=== PATIENT | female | born 1990 | race Two or more races ===

== ENCOUNTER 2024-06-15 14:36 | Outpatient (AMB) | payer MEDICAID, SELFPAY ==
[2024-06-15 15:06] VITALS: BP 118/73; PULSE 83; RESP 19; TEMP 36.6; O2SAT 97; BMI 32.6
--- NOTE | 2024-06-15 15:06 | ORTHONT_ITS ---
Vital signs 06/15/24 15:06 Height 1.73 m Height Method Stated Weight 97.522 kg Weight Measurement Method Standing Scale BMI 32.6 BP 118/73 Blood Pressure Source Automatic Cuff Blood Pressure Location Right Upper Arm Position Sitting Respiration 19 Pulse 83 Pulse Source Monitor Temp 97.9 F Temp Source Temporal Artery Scan Pulse Oximetry (%) 97 Oxygen Delivery Method Room Air Med/Allergies Allergies & Medications Allergies sumatriptan [From Imitrex] Allergy (Verified 06/15/24 15:13) vancomycin Allergy (Verified 06/15/24 15:13) AUGMENTIN Allergy (Uncoded 06/15/24 15:13) LOCADINE PATCH Allergy (Uncoded 06/15/24 15:13) Medication Reconciliation acetaminophen 325 mg tablet (Tylenol) 325 mg PO QID PRN 06/15/24 [History Confirmed 06/15/24] albuterol sulfate 4 mg tablet, extended release 12 hr mg PO 06/15/24 [History Confirmed 06/15/24] cetirizine 10 mg tablet (Zyrtec) 10 mg PO QDAY PRN 06/15/24 [History Confirmed 06/15/24] diltiazem HCl 60 mg capsule,extended release 12 hr 60 mg PO BID 06/15/24 [History Confirmed 06/15/24] famotidine 20 mg tablet (Pepcid) 20 mg PO QDAY 06/15/24 [History Confirmed 06/15/24] fluticasone propionate 220 mcg/actuation HFA aerosol inhaler 1 puff inhalation BID 06/15/24 [History Confirmed 06/15/24] montelukast 10 mg tablet (Singulair) 10 mg PO QDAY 06/15/24 [History Confirmed 06/15/24] sertraline 100 mg tablet (Zoloft) 100 mg PO QDAY 06/15/24 [History Confirmed 06/15/24] Exam Exam Patient is in no acute distress and is cooperative with the examination today. Breathing is nonlabored. In no respiratory distress. Bilateral extremities were evaluated and demonstrates sensation intact to light touch. Palpable pedal pulses are present. No significant edema is present. Bilateral hips were examined. The patient has no pain with log roll of the hips. Internal rotation to 30 degrees and external rotation to 30 degrees is painless. Negative FADIR. The left knee was examined. The left knee is in varus alignment. Range of motion from 0-115 degrees. Knee is stable to varus and valgus as well as AP translation with <5mm. Patient has a negative McMurrays. There is no pain with patellofemoral compression and no crepitus noted. The knee is tender to palpation medially. The right knee was also examined. The right knee is in varus alignment. Range of motion from 0-120 degrees. Knee is stable to varus and valgus as well as AP translation with <5mm. Patient has a negative McMurrays. There is no pain with patellofemoral compression and no crepitus noted. The knee is tender to palpation medially. X-rays of the left knee demonstrates moderate to severe joint space narrowing medially. Osteophytes are present. Assessment and Plan Problem List (1) Degenerative arthritis of knee, bilateral: Status: Acute Plan: Patient is a 34-year-old female with posttraumatic arthritis of the left knee. We discussed nonoperative and operative options. At this point in time, we discussed that we recommend continued conservative treatment because of her age. We can do injections but we will need authorization. I also recommend weight loss in order to prolong and minimize her pain We will see her back after authorization for injections are obtained Office Procedures GNS Level of Care Nursing/Assessment Patient Status: Established Patient Nursing Assessment/Reassesment: Medication Reconciliation, Update PMH in EMR and Vital Signs Coordination of Care: Complex Care and Chronic Disease 1-5, Education Complex Pt/Fam, Consent,records obtained, informed consent, Results/Orders obtained and Staff clarify orders Established Patient Charge Established Patient Point Assignment: 95 Established Patient Point Charge: EP Level 3 (80-115) MA Intake Visit Data Collection New Patient or Established: New Patient (never been to [facility]) Reason for Visit:: BILATERAL KNEE PAIN Seen by Clinical Staff ONLY (RN/MA): No Verbal consent obtained for Telemed visit?: No 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 PCP or OBGYN visit in last 3 months: Yes Hx Now: No Do You Feel Safe at Home: Yes Authorities Contacted: N/A Questionairres Past Medical History Past Medical History Have you ever been diagnosed with any of the following: Subjective Visit Visit for: new patient and knee Immunization / Flu Flu Vaccine in the Last 12 Months: Yes Flu Vaccine Exclusion Criteria: No Exclusion Criteria History of Present Illness Chief complaint: BILATERAL KNEE PAIN Date of injury / onset of symptoms: YEARS Date of 1st surgery (if applicable): ACL REPAIR 06/15, 03/15,05/30 Beckie is a pleasant 34-year-old female with bilateral knee pain. The left side is worse than the right. She has had 3 prior surgeries including 2 ACL repairs as well as a arthroscopic meniscectomy. The pain is persistent and is bothering her. She has tried to lose weight but has had some difficulty. We recommend continued weight loss. She cannot take anti-inflammatories due to urticaria and fissures. Personal History Occupation: UNEMPLOYED Red flag PMH: none BMI Counceling provided: Yes Pain Pain level (0-10): 5 Pain duration: ALL DAY Pain location: inside (medial) Pain quality: dull and aching Pain timing: night, increases with activity and stairs Associated signs & symptoms: numbness, weakness and stiffness Ambulatory data Ambulatory device: cane and walker Treatments Improvement with previous injections: No Improvement with PT: No Improvement with NSAIDS: no Review of Systems Review of Systems: All systems negative unless otherwise noted in HPI.
== END 2024-06-15 15:34 | disposition home or self-care (01) ==
PROVIDERS: Supervising Provider Orthopaedic Surgery Adult Reconstructive Orthopaedic Surgery; Visit Provider Orthopaedic Surgery Adult Reconstructive Orthopaedic Surgery
DX: M17.0 Bilateral primary osteoarthritis of knee (principal)
CPT/HCPCS: 99213; G0463

== ENCOUNTER 2024-06-29 11:02 | Outpatient (AMB) | payer MEDICAID, SELFPAY ==
[2024-06-29 11:15] VITALS: BP 126/82; PULSE 78; RESP 18; TEMP 36.2; O2SAT 96; BMI 33.2
--- NOTE | 2024-06-29 11:15 | PD.ORTHCLVIS ---
Vital signs 06/29/24 11:15 Height 1.73 m Height Method Stated Weight 99.393 kg Weight Measurement Method Standing Scale BMI 33.2 BP 126/82 Blood Pressure Source Automatic Cuff Blood Pressure Location Right Upper Arm Position Sitting Respiration 18 Pulse 78 Pulse Source Monitor Temp 97.2 F Temp Source Temporal Artery Scan Pulse Oximetry (%) 96 Oxygen Delivery Method Room Air Med/Allergies Allergies & Medications Allergies sumatriptan [From Imitrex] Allergy (Verified 06/29/24 11:15) vancomycin Allergy (Verified 06/29/24 11:15) AUGMENTIN Allergy (Uncoded 06/29/24 11:15) LOCADINE PATCH Allergy (Uncoded 06/29/24 11:15) Medication Reconciliation acetaminophen 325 mg tablet (Tylenol) 325 mg PO QID PRN 06/15/24 [History Confirmed 06/29/24] albuterol sulfate 4 mg tablet, extended release 12 hr mg PO 06/15/24 [History Confirmed 06/29/24] cetirizine 10 mg tablet (Zyrtec) 10 mg PO QDAY PRN 06/15/24 [History Confirmed 06/29/24] diltiazem HCl 60 mg capsule,extended release 12 hr 60 mg PO BID 06/15/24 [History Confirmed 06/29/24] famotidine 20 mg tablet (Pepcid) 20 mg PO QDAY 06/15/24 [History Confirmed 06/29/24] fluticasone propionate 220 mcg/actuation HFA aerosol inhaler 1 puff inhalation BID 06/15/24 [History Confirmed 06/29/24] montelukast 10 mg tablet (Singulair) 10 mg PO QDAY 06/15/24 [History Confirmed 06/29/24] sertraline 100 mg tablet (Zoloft) 100 mg PO QDAY 06/15/24 [History Confirmed 06/29/24] Exam Exam Patient is in no acute distress and is cooperative with the examination today. Breathing is nonlabored. In no respiratory distress. Bilateral extremities were evaluated and demonstrates sensation intact to light touch. Palpable pedal pulses are present. No significant edema is present. Bilateral hips were examined. The patient has no pain with log roll of the hips. Internal rotation to 30 degrees and external rotation to 30 degrees is painless. Negative FADIR. The left knee was examined. The left knee is in varus alignment. Range of motion from 0-115 degrees. Knee is stable to varus and valgus as well as AP translation with <5mm. Patient has a negative McMurrays. There is no pain with patellofemoral compression and no crepitus noted. The knee is tender to palpation medially. The right knee was also examined. The right knee is in varus alignment. Range of motion from 0-120 degrees. Knee is stable to varus and valgus as well as AP translation with <5mm. Patient has a negative McMurrays. There is no pain with patellofemoral compression and no crepitus noted. The knee is tender to palpation medially. X-rays of the left knee demonstrates moderate to severe joint space narrowing medially. Osteophytes are present. Right knee imaging is at [place] imaging of the left knee images are [facility] Assessment and Plan Problem List (1) Degenerative arthritis of knee, bilateral: Status: Acute Plan: Patient is a 34-year-old female with posttraumatic arthritis of the left knee. We discussed nonoperative and operative options. At this point in time, we discussed that we recommend continued conservative treatment because of her age. We recommend continue conservative treatment with injections today. Recommend knee cortisone injections as patient would like to proceed with conservative treatment at this time. The risks and benefits of the procedure were reviewed with the patient and patient gave verbal consent to continue with the procedure. Procedure: performed by Dr. Luevano Using sterile technique the Bilateral knees were thoroughly prepped with alcohol, and approximately 1 cc of Kenalog 40 mg/mL and 4 cc of 1% lidocaine was injected into each knee without resistance into the medial tibial femoral joint space. The patient tolerated the procedure. Office Procedures GNS Level of Care Nursing/Assessment Patient Status: Established Patient Nursing Assessment/Reassesment: Medication Reconciliation, Update PMH in EMR and Vital Signs Coordination of Care: Complex Care and Chronic Disease 1-5, Education Complex Pt/Fam, Consent,records obtained, informed consent, Results/Orders obtained and Staff clarify orders Established Patient Charge Established Patient Point Assignment: 95 Established Patient Point Charge: EP Level 3 (80-115) MA Intake Visit Data Collection New Patient or Established: Established Patient (seen at [facility] within 3 years) Reason for Visit:: F/U ON KNEE INJECTIONS Seen by Clinical Staff ONLY (RN/MA): No Verbal consent obtained for Telemed visit?: No 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: 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 PCP or OBGYN visit in last 3 months: Yes Hx Now: No Do You Feel Safe at Home: Yes Authorities Contacted: N/A Questionairres Past Medical History Past Medical History Have you ever been diagnosed with any of the following: Subjective Visit Visit for: follow up visit, knee and injections Immunization / Flu Flu Vaccine in the Last 12 Months: No Flu Vaccine Exclusion Criteria: No Exclusion Criteria History of Present Illness Chief complaint: F/U KNEE INJECTIONS Date of injury / onset of symptoms: YEARS Date of 1st surgery (if applicable): ACL REPAIR 06/15, 03/15,05/30 Beckie is a pleasant 34-year-old female with bilateral knee pain. The left side is worse than the right. She has had 3 prior surgeries including 2 ACL repairs as well as a arthroscopic meniscectomy. The pain is persistent and is bothering her. She has tried to lose weight but has had some difficulty. We recommend continued weight loss. She cannot take anti-inflammatories due to urticaria and fissures. Personal History Occupation: UNEMPLOYED Red flag PMH: none BMI Counceling provided: Yes Pain Pain level (0-10): 5 Pain duration: ALL DAY Pain location: inside (medial), outside (lateral) and anterior Pain quality: sharp, dull and aching Pain timing: night and increases with activity Associated signs & symptoms: numbness, weakness and stiffness Ambulatory data Ambulatory device: none Treatments Improvement with previous injections: No Improvement with PT: No Improvement with NSAIDS: n/a Review of Systems Review of Systems: All systems negative unless otherwise noted in HPI.
== END 2024-06-29 11:47 | disposition home or self-care (01) ==
LOC: HODSRG 11:02
PROVIDERS: Supervising Provider Orthopaedic Surgery Adult Reconstructive Orthopaedic Surgery; Visit Provider Orthopaedic Surgery Adult Reconstructive Orthopaedic Surgery
DX: M17.0 Bilateral primary osteoarthritis of knee (principal)
CPT/HCPCS: 20610; 99213; J3301; J3490; G0463

== ENCOUNTER 2024-09-28 10:07 | Outpatient (AMB) | payer MEDICAID, SELFPAY ==
--- NOTE | 2024-09-28 10:28 | PD.ORTHCLVIS ---
Vital signs 09/28/24 10:29 Height 1.73 m Height Method Stated Weight 101.633 kg Weight Measurement Method Standing Scale BMI 34.0 BP 125/86 H Blood Pressure Source Automatic Cuff Blood Pressure Location Left Upper Arm Position Sitting Respiration 18 Pulse 80 Pulse Source Monitor Temp 96.9 F Temp Source Temporal Artery Scan Pulse Oximetry (%) 96 Oxygen Delivery Method Room Air Med/Allergies Allergies & Medications Allergies sumatriptan (From Imitrex) Allergy (Verified 09/28/24 10:31) vancomycin Allergy (Verified 09/28/24 10:31) AUGMENTIN Allergy (Uncoded 09/28/24 10:31) LOCADINE PATCH Allergy (Uncoded 09/28/24 10:31) Medication Reconciliation acetaminophen 325 mg tablet (Tylenol) 325 mg PO QID PRN 06/15/24 [History Confirmed 09/28/24] albuterol sulfate 4 mg tablet, extended release 12 hr mg PO 06/15/24 [History Confirmed 09/28/24] cetirizine 10 mg tablet (Zyrtec) 10 mg PO QDAY PRN 06/15/24 [History Confirmed 09/28/24] diltiazem HCl 60 mg capsule,extended release 12 hr 60 mg PO BID 06/15/24 [History Confirmed 09/28/24] famotidine 20 mg tablet (Pepcid) 20 mg PO QDAY 06/15/24 [History Confirmed 09/28/24] fluticasone propionate 220 mcg/actuation HFA aerosol inhaler 1 puff inhalation BID 06/15/24 [History Confirmed 09/28/24] montelukast 10 mg tablet (Singulair) 10 mg PO QDAY 06/15/24 [History Confirmed 09/28/24] sertraline 100 mg tablet (Zoloft) 100 mg PO QDAY 06/15/24 [History Confirmed 09/28/24] Exam Exam Patient is in no acute distress and is cooperative with the examination today. Breathing is nonlabored. In no respiratory distress. Bilateral extremities were evaluated and demonstrates sensation intact to light touch. Palpable pedal pulses are present. No significant edema is present. Bilateral hips were examined. The patient has no pain with log roll of the hips. Internal rotation to 30 degrees and external rotation to 30 degrees is painless. Negative FADIR. The left knee was examined. The left knee is in varus alignment. Range of motion from 0-115 degrees. Knee is stable to varus and valgus as well as AP translation with <5mm. Patient has a negative McMurrays. There is no pain with patellofemoral compression and no crepitus noted. The knee is tender to palpation medially. The right knee was also examined. The right knee is in varus alignment. Range of motion from 0-120 degrees. Knee is stable to varus and valgus as well as AP translation with <5mm. Patient has a negative McMurrays. There is no pain with patellofemoral compression and no crepitus noted. The knee is tender to palpation medially. X-rays of the left knee demonstrates moderate to severe joint space narrowing medially. Osteophytes are present. Right knee imaging is at [place] imaging of the left knee images are [facility] Assessment and Plan Problem List (1) Degenerative arthritis of knee, bilateral: Status: Acute Plan: Patient is a 34-year-old female with posttraumatic arthritis of the left knee. We discussed nonoperative and operative options. At this point in time, we discussed that we recommend continued conservative treatment because of her age. We recommend continue conservative treatment with injections today. Recommend knee cortisone injections as patient would like to proceed with conservative treatment at this time. The risks and benefits of the procedure were reviewed with the patient and patient gave verbal consent to continue with the procedure. Procedure: performed by Dr. Luevano Using sterile technique the Bilateral knees were thoroughly prepped with alcohol, and approximately 1 cc of Kenalog 40 mg/mL and 4 cc of 1% lidocaine was injected into each knee without resistance into the medial tibial femoral joint space. The patient tolerated the procedure. Office Procedures GNS Level of Care Nursing/Assessment Patient Status: Established Patient Nursing Assessment/Reassesment: Medication Reconciliation, Update PMH in EMR and Vital Signs Coordination of Care: Complex Care and Chronic Disease 1-5, Education Complex Pt/Fam, Consent,records obtained, informed consent, Results/Orders obtained and Staff clarify orders Established Patient Charge Established Patient Point Assignment: 95 Established Patient Point Charge: EP Level 3 (80-115) Surgical Proc/IM SQ injection Major Surgical Procedure: Yes (BILATERAL KNEE INJECTION ) Medication Given Medication Given Medication Given: Yes Documented Dose Given: 8 Route: Infiitration Medication Given Medication Given Medication Given: Yes Documented Dose Given: 1 Route: Infiitration Office Meds Xylocaine 10 mg/mL (1 %) injection solution Performing Provider: Goran Luevano MD Performing Location: [facility] Administered by: Goran Luevano MD on 09/28/24 11:27 Dose Route Admin Location Dispensed Lot Number Expiration Date [facility] Oncologist 40 mL Infiltration 40 mL [id number] 11/08/27 29464-638-[facility] triamcinolone acetonide 40 mg/mL suspension for injection Performing Provider: Goran Luevano MD Performing Location: [facility] Administered by: Goran Luevano MD on 09/28/24 11:27 Dose Route Admin Location Dispensed Lot Number Expiration Date [facility] Oncologist 80 mg intra-articular 2 mL [id number] 10/07/25 [id number] [facility] [place] Intake Visit Data Collection New Patient or Established: Established Patient (seen at [facility] within 3 years) Reason for Visit:: FOLLOW UP KNEE PAIN REQ INJECTION Seen by Clinical Staff ONLY (RN/MA): No PCP or OBGYN visit in last 3 months: Yes Hx Now: No Do You Feel Safe at Home: Yes Authorities Contacted: N/A Questionairres Past Medical History Past Medical History Have you ever been diagnosed with any of the following: Respiratory Problems Smoking: No Smoking Exposure: No Subjective Visit Visit for: follow up visit, knee and injections Immunization / Flu Flu Vaccine in the Last 12 Months: No Flu Vaccine Exclusion Criteria: No Exclusion Criteria History of Present Illness Chief complaint: F/U KNEE INJECTIONS Date of injury / onset of symptoms: YEARS Date of 1st surgery (if applicable): ACL REPAIR 06/15, 03/15,05/30 Beckie is a pleasant 34-year-old female with bilateral knee pain. The left side is worse than the right. She has had 3 prior surgeries including 2 ACL repairs as well as a arthroscopic meniscectomy. The pain is persistent and is bothering her. She has tried to lose weight but has had some difficulty. We recommend continued weight loss. She cannot take anti-inflammatories due to urticaria and fissures. The last injections have lasted over 3 months and she would like new ones today Personal History Occupation: UNEMPLOYED Red flag PMH: none BMI Counceling provided: Yes Pain Pain level (0-10): 4 Pain duration: CONSTANT Pain location: inside (medial) Pain quality: dull and aching Pain timing: increases with activity and stairs Associated signs & symptoms: none Ambulatory data Ambulatory device: none Treatments Number of previous injections: 1 Improvement with previous injections: Yes Number of Physical Therapy sessions: 6 Improvement with PT: Yes Improvement with NSAIDS: no Review of Systems Review of Systems: All systems negative unless otherwise noted in HPI.
[2024-09-28 10:29] VITALS: BP 125/86; PULSE 80; RESP 18; TEMP 36.1; O2SAT 96; BMI 34.0
== END 2024-09-28 11:08 | disposition home or self-care (01) ==
LOC: HODSRG 10:07
PROVIDERS: Supervising Provider Orthopaedic Surgery Adult Reconstructive Orthopaedic Surgery; Visit Provider Orthopaedic Surgery Adult Reconstructive Orthopaedic Surgery
DX: M17.0 Bilateral primary osteoarthritis of knee (principal)
CPT/HCPCS: 20610; 99213; J3301; J3490; G0463

== ENCOUNTER 2024-12-28 10:37 | Outpatient (AMB) | payer MEDICAID, SELFPAY ==
--- NOTE | 2024-12-28 10:58 | PD.ORTHCLVIS ---
Vital signs 12/28/24 11:06 Height 1.73 m Height Method Measured Weight 102.285 kg Weight Measurement Method Standing Scale BMI 34.2 BP 133/87 H Blood Pressure Source Automatic Cuff Blood Pressure Location Right Upper Arm Position Sitting Respiration 18 Pulse 72 Pulse Source Monitor Temp 97.5 F Temp Source Temporal Artery Scan Pulse Oximetry (%) 94 L Oxygen Delivery Method Room Air Med/Allergies Allergies & Medications Allergies sumatriptan (From Imitrex) Allergy (Verified 12/28/24 11:07) vancomycin Allergy (Verified 12/28/24 11:07) AUGMENTIN Allergy (Uncoded 12/28/24 11:07) LOCADINE PATCH Allergy (Uncoded 12/28/24 11:07) Medication Reconciliation acetaminophen 325 mg tablet (Tylenol) 325 mg PO QID PRN 06/15/24 [History Confirmed 12/28/24] albuterol sulfate 4 mg tablet, extended release 12 hr mg PO 06/15/24 [History Confirmed 12/28/24] cetirizine 10 mg tablet (Zyrtec) 10 mg PO QDAY PRN 06/15/24 [History Confirmed 12/28/24] diltiazem HCl 60 mg capsule,extended release 12 hr 60 mg PO BID 06/15/24 [History Confirmed 12/28/24] famotidine 20 mg tablet (Pepcid) 20 mg PO QDAY 06/15/24 [History Confirmed 12/28/24] fluticasone propionate 220 mcg/actuation HFA aerosol inhaler 1 puff inhalation BID 06/15/24 [History Confirmed 12/28/24] montelukast 10 mg tablet (Singulair) 10 mg PO QDAY 06/15/24 [History Confirmed 12/28/24] sertraline 100 mg tablet (Zoloft) 100 mg PO QDAY 06/15/24 [History Confirmed 12/28/24] Exam Exam Patient is in no acute distress and is cooperative with the examination today. Breathing is nonlabored. In no respiratory distress. Bilateral extremities were evaluated and demonstrates sensation intact to light touch. Palpable pedal pulses are present. No significant edema is present. Bilateral hips were examined. The patient has no pain with log roll of the hips. Internal rotation to 30 degrees and external rotation to 30 degrees is painless. Negative FADIR. The left knee was examined. The left knee is in varus alignment. Range of motion from 0-115 degrees. Knee is stable to varus and valgus as well as AP translation with <5mm. Patient has a negative McMurrays. There is no pain with patellofemoral compression and no crepitus noted. The knee is tender to palpation medially. The right knee was also examined. The right knee is in varus alignment. Range of motion from 0-120 degrees. Knee is stable to varus and valgus as well as AP translation with <5mm. Patient has a negative McMurrays. There is no pain with patellofemoral compression and no crepitus noted. The knee is tender to palpation medially. X-rays of the left knee demonstrates moderate to severe joint space narrowing medially. Osteophytes are present. Right knee imaging is at [place] imaging of the left knee images are Nondenominational Assessment and Plan Problem List (1) Degenerative arthritis of knee, bilateral: Status: Acute Plan: Patient is a 34-year-old female with posttraumatic arthritis of the left knee. We discussed nonoperative and operative options. At this point in time, we discussed that we recommend continued conservative treatment because of her age. We recommend continue conservative treatment with injections today. Recommend knee cortisone injections as patient would like to proceed with conservative treatment at this time. The risks and benefits of the procedure were reviewed with the patient and patient gave verbal consent to continue with the procedure. Procedure: performed by Dr. Luevano Using sterile technique the Bilateral knees were thoroughly prepped with alcohol, and approximately 1 cc of Kenalog 40 mg/mL and 4 cc of 1% lidocaine was injected into each knee without resistance into the medial tibial femoral joint space. The patient tolerated the procedure. Office Procedures GNS Level of Care Nursing/Assessment Patient Status: Established Patient Nursing Assessment/Reassesment: Medication Reconciliation, Update PMH in EMR and Vital Signs Coordination of Care: Complex Care and Chronic Disease 1-5, Education Complex Pt/Fam, Consent,records obtained, informed consent, Results/Orders obtained and Staff clarify orders Established Patient Charge Established Patient Point Assignment: 95 Established Patient Point Charge: EP Level 3 (80-115) Surgical Proc/IM SQ injection Major Surgical Procedure: Yes (BILATERAL KNEE INJECTION) Medication Given Medication Given Medication Given: Yes Documented Dose Given: 8 Route: Infiitration Medication Given Medication Given Medication Given: Yes Documented Dose Given: 1 Route: Infiitration Office Meds Xylocaine 10 mg/mL (1 %) injection solution Performing Provider: Goran Luevano MD Performing Location: [facility] Administered by: Goran Luevano MD on 12/28/24 11:51 Dose Route Admin Location Dispensed Lot Number Expiration Date [facility] Housekeeping Worker 40 mL Infiltration 40 mL [id number] 03/08/28 35315-252-78 [facility] triamcinolone acetonide 40 mg/mL suspension for injection Performing Provider: Goran Luevano MD Performing Location: [facility] Administered by: Goran Luevano MD on 12/28/24 11:51 Dose Route Admin Location Dispensed Lot Number Expiration Date [facility] Housekeeping Worker 80 mg intra-articular 2 mL [id number] 07/08/26 00242-915-24 KRISTEN ABEBE MA Intake Visit Data Collection New Patient or Established: Established Patient (seen at [facility] within 3 years) Reason for Visit:: 3 MONTH F/U KNEE INJECTION Seen by Clinical Staff ONLY (RN/MA): No Sound Engineering Technician Required: No PCP or OBGYN visit in last 3 months: Yes Hx Now: No Do You Feel Safe at Home: Yes Authorities Contacted: N/A Questionairres Past Medical History Past Medical History Have you ever been diagnosed with any of the following: Respiratory Problems Smoking: No Smoking Exposure: No Subjective Visit Visit for: follow up visit, knee and injections Immunization / Flu Flu Vaccine in the Last 12 Months: No Flu Vaccine Exclusion Criteria: No Exclusion Criteria History of Present Illness Chief complaint: BILATERAL KNEE INJECTION Date of injury / onset of symptoms: YEARS Date of 1st surgery (if applicable): ACL REPAIR 06/15, 03/15,05/30 Beckie is a pleasant 34-year-old female with bilateral knee pain. The left side is worse than the right. She has had 3 prior surgeries including 2 ACL repairs as well as a arthroscopic meniscectomy. The pain is persistent and is bothering her. She has tried to lose weight but has had some difficulty. We recommend continued weight loss. She cannot take anti-inflammatories due to urticaria and fissures. The last injections have lasted over 3 months and she would like new ones today Personal History Occupation: UNEMPLOYED Red flag PMH: none BMI Counceling provided: Yes Pain Pain level (0-10): 6 Pain duration: CONSTANT Pain location: inside (medial) and posterior Pain quality: sharp, dull and aching Pain timing: night, increases with activity and stairs Associated signs & symptoms: none Ambulatory data Ambulatory device: none Treatments Number of previous injections: 3 Improvement with previous injections: Yes Number of Physical Therapy sessions: 6 Improvement with PT: Yes Improvement with NSAIDS: no Review of Systems Review of Systems: All systems negative unless otherwise noted in HPI.
[2024-12-28 11:06] VITALS: BP 133/87; PULSE 72; RESP 18; TEMP 36.4; O2SAT 94; BMI 34.2
== END 2024-12-28 11:25 | disposition home or self-care (01) ==
LOC: HODSRG 10:37
PROVIDERS: Supervising Provider Orthopaedic Surgery Adult Reconstructive Orthopaedic Surgery; Visit Provider Orthopaedic Surgery Adult Reconstructive Orthopaedic Surgery
DX: M17.0 Bilateral primary osteoarthritis of knee (principal); M25.562 Pain in left knee; M25.561 Pain in right knee
CPT/HCPCS: 20610; 99213; J3301; J3490; G0463